=== PATIENT | male | born 1960 | race African-American/Black ===

== ENCOUNTER 2020-07-17 04:37 | Inpatient (IN) | payer OTHER ==
[~2020-07-17] VITALS: Ht 167.6 cm; Wt 82.6 kg
[2020-07-17 06:13] LABS: BASOPHILS % 0.7 % (0.0-2.0); EOSINOPHILS % 5.4 % (0.0-5.0); HEMATOCRIT. 43.1 % (42.0-52.0); HEMOGLOBIN. 14.7 g/dL (14.0-18.0); LYMPHOCYTES % 30.6 % (20.0-50.0); MEAN CORPUSCULAR HEMOGLOBIN 32.8 pg (28.0-32.0); MEAN CORPUSCULAR VOLUME 96.2 fL (80.0-94.0); MEAN PLATELET VOLUME 7.8 fl (7.4-10.4); MONOCYTES % 12.2 % (2.0-8.0); NEUTROPHILS % 51.1 % (40.0-76.0); PLATELET 181 x1000/uL (130-400); RED BLOOD CELL COUNT 4.48 mill/uL (4.7-6.1); RED CELL DISTRIBUTION WIDTH 12.4 % (11.6-14.6)
[2020-07-17 06:20] LABS: CHLORIDE 101 mEq/L (98-107)
[2020-07-17] MEDS ORDERED: DILTIAZEM HCL 5MG/ML 5ML VIAL IV ONE ×3 (06:45→11:00)
[2020-07-17] MEDS ORDERED: FUROSEMIDE 20MG/2ML VIAL IVP ONE (07:30)
[2020-07-17] MEDS ORDERED: ASPIRIN 81MG EC TABLET PO ONE (07:30)
[2020-07-17] MEDS ORDERED: CEFTRIAXONE 1 G PREMIX 50 ML IV ONE (07:45)
[2020-07-17] MEDS ORDERED: AZITHROMYCIN 500 MG in DEXT 5% WATER 250 ML IV SCH ×2 (07:45→10:30)
[2020-07-17] MEDS ORDERED: MAGNESIUM 1 G PREMIX 100 ML IV ONE (07:45)
[2020-07-17 09:13] LABS: *AMPHETAMINES SCREEN URINE NEGATIVE (NEGATIVE); *BARBITURATES SCREEN URINE NEGATIVE (NEGATIVE)
[2020-07-17 09:14] LABS: *BENZODIAZEPINES SCREEN URINE NEGATIVE (NEGATIVE); *COCAINE SCREEN URINE NEGATIVE (NEGATIVE); CANNABINOID URINE SCREEN NEGATIVE (NEGATIVE); METHADONE URINE SCREEN NEGATIVE (NEGATIVE); OPIATES URINE SCREEN NEGATIVE (NEGATIVE); PHENCYCLIDINE URINE SCREEN NEGATIVE (NEGATIVE)
[2020-07-17] MEDS ORDERED: MAGNESIUM/ALUMINUM HYDROXIDE/SIMETHICONE 30ML UDC PO PRN (10:00)
[2020-07-17] MEDS ORDERED: LORAZEPAM 0.5MG TABLET PO PRN (10:00)
[2020-07-17] MEDS ORDERED: CLONIDINE 0.1MG TABLET PO PRN (10:00)
[2020-07-17] MEDS ORDERED: ACETAMINOPHEN 325MG TABLET PO PRN ×2 (10:00)
[2020-07-17] MEDS ORDERED: DOCUSATE SODIUM 100MG CAPSULE PO PRN (10:00)
[2020-07-17] MEDS ORDERED: ONDANSETRON HCL 4MG/2ML INJ IV PRN (10:00)
[2020-07-17] MEDS ORDERED: TRAMADOL 50MG TABLET PO PRN (10:00)
[2020-07-17] MEDS ORDERED: ENOXAPARIN 100MG/ML SYR SUBCUT SCH (10:00)
[2020-07-17] MEDS ORDERED: NITROGLYCERIN 0.4MG TABLET SL SL PRN (10:00)
[2020-07-17] MEDS ORDERED: GUAIFENESIN 200MG/10ML SUGAR FREE UDC PO PRN (10:00)
[2020-07-17] MEDS: GUAIFENESIN/DM 600MG/30MG ER TAB 12HR PO SCH ×2 (10:00→21:29)
[2020-07-17] MEDS ORDERED: ZOLPIDEM TARTRATE 5MG TABLET PO PRN (10:00)
[2020-07-17] MEDS ORDERED: NA PHOS,M-B/NA PHOS,DI-BA ENEMA 118ML PR PRN (10:00)
[2020-07-17] MEDS ORDERED: IPRATROPIUM/ALBUTEROL 0.5-3(2.5)MG/3ML NEB ORI PRN (10:00)
[2020-07-17] MEDS ORDERED: DILTIAZEM HCL 60MG TABLET PO SCH (12:00)
[2020-07-17 15:52] VITALS: BP 154/87
[2020-07-17] MEDS ORDERED: POTA8CAP20 MT (16:01)
[2020-07-17] MEDS ORDERED: RIVA10TA MT (16:01)
[2020-07-17 16:04] VITALS: BP 141/87
[2020-07-17 18:00] VITALS: BP 119/56
[2020-07-17] MEDS ORDERED: MAGNESIUM 2 G PREMIX 50 ML IV NR (18:00)
[2020-07-17] MEDS: ENOXAPARIN 80MG/0.8ML SYR SUBCUT SCH (18:13)
[2020-07-17 20:00] VITALS: BP 117/62
[2020-07-17 20:16] LABS: CREATINE KINASE MB FRACTION 2.5 ng/mL (0.5-3.6)
[2020-07-17] MEDS: DILTIAZEM HCL 90MG TABLET PO SCH (21:29)
[2020-07-17] MEDS: ASCORBIC ACID 500 MG TABLET PO SCH (21:30)
[2020-07-17] MEDS: FAMOTIDINE 20MG TABLET PO SCH (21:30)
[2020-07-17 22:00] VITALS: BP 136/89
[2020-07-18] VITALS (15 sets, daily range): BP systolic 109–155; BP diastolic 73–90
[2020-07-18] MEDS: ENOXAPARIN 80MG/0.8ML SYR SUBCUT SCH (05:56)
[2020-07-18] MEDS: DILTIAZEM HCL 90MG TABLET PO SCH ×3 (05:56→21:47)
[2020-07-18] MEDS: CEFTRIAXONE 1,000 MG in DEXTROSE 5% WATER 50 ML IV SCH (07:56)
[2020-07-18] MEDS: AZITHROMYCIN 500 MG in DEXT 5% WATER 250 ML IV SCH (07:56)
[2020-07-18] MEDS ORDERED: CEFTRIAXONE 1,000 MG in DEXTROSE 5% WATER 50 ML IV SCH (08:00)
[2020-07-18] MEDS: ASCORBIC ACID 500 MG TABLET PO SCH ×2 (08:22→20:16)
[2020-07-18] MEDS: ZINC SULFATE 220 MG ( 50 ) CAPSULE PO SCH (08:22)
[2020-07-18] MEDS: FAMOTIDINE 20MG TABLET PO SCH ×2 (08:26→20:16)
[2020-07-18] MEDS: GUAIFENESIN/DM 600MG/30MG ER TAB 12HR PO SCH ×2 (08:33→21:47)
[2020-07-18 08:39] LABS: BASOPHILS % 0.9 % (0.0-2.0); EOSINOPHILS % 9.4 % (0.0-5.0); HEMATOCRIT. 46.3 % (42.0-52.0); HEMOGLOBIN. 15.6 g/dL (14.0-18.0); LYMPHOCYTES % 39.8 % (20.0-50.0); MEAN CORPUSCULAR HEMOGLOBIN 32.6 pg (28.0-32.0); MEAN CORPUSCULAR VOLUME 96.4 fL (80.0-94.0); MEAN PLATELET VOLUME 8.7 fl (7.4-10.4); MONOCYTES % 10.9 % (2.0-8.0); PLATELET 219 x1000/uL (130-400); RED CELL DISTRIBUTION WIDTH 12.3 % (11.6-14.6)
[2020-07-18 08:58] LABS: CHLORIDE 104 mEq/L (98-107)
[2020-07-18] MEDS ORDERED: CEFTRIAXONE 1 G PREMIX 50 ML IV SCH (09:00)
[2020-07-18] MEDS ORDERED: ASPIRIN 325MG EC TABLET PO SCH (09:00)
[2020-07-18] MEDS ORDERED: AZITHROMYCIN 500 MG in DEXT 5% WATER 250 ML IV SCH (09:00)
[2020-07-18 09:04] LABS: PHOSPHORUS 2.5 mg/dL (2.5-4.9)
[2020-07-18] MEDS ORDERED: MIDAZOLAM HCL 2 MG/2 ML VIAL ONE ×2 (10:27→13:46)
[2020-07-18] MEDS ORDERED: LIDOCAINE HCL 1% 20ML VIAL (Pyxis) INJ ONE (10:27)
[2020-07-18] MEDS ORDERED: FENTANYL CITRATE/PF 50MCG/ML 2ML VIAL ONE ×2 (10:27→13:46)
[2020-07-18] MEDS ORDERED: IODIXANOL 320MG/ML 100 ML BOTTLE IV ONE (10:28)
[2020-07-18] MEDS ORDERED: HEPARIN SODIUM 1,000 UNIT/1ML VIAL IV ONE (11:12)
[2020-07-18] MEDS ORDERED: VERAPAMIL HCL 2.5 MG/1 ML 2ML VIAL IV ONE (13:21)
[2020-07-18] MEDS ORDERED: RIVAROXABAN 20 MG TABLET PO SCH (17:56)
[2020-07-19] VITALS: BP 107/59
[2020-07-19 02:00] VITALS: BP 128/83
[2020-07-19 04:00] VITALS: BP 93/76
[2020-07-19 05:01] VITALS: BP 138/88
[2020-07-19 06:14] VITALS: BP 127/81
[2020-07-19 06:18] LABS: CHLORIDE 103 mEq/L (98-107)
[2020-07-19 06:19] LABS: BASOPHILS % 0.6 % (0.0-2.0); EOSINOPHILS % 10.1 % (0.0-5.0); HEMATOCRIT. 40.1 % (42.0-52.0); HEMOGLOBIN. 13.7 g/dL (14.0-18.0); LYMPHOCYTES % 37.5 % (20.0-50.0); MEAN CORPUSCULAR HEMOGLOBIN 32.8 pg (28.0-32.0); MEAN CORPUSCULAR VOLUME 95.9 fL (80.0-94.0); MEAN PLATELET VOLUME 8.8 fl (7.4-10.4); MONOCYTES % 10.9 % (2.0-8.0); NEUTROPHILS % 40.9 % (40.0-76.0); PLATELET 179 x1000/uL (130-400); RED BLOOD CELL COUNT 4.17 mill/uL (4.7-6.1); RED CELL DISTRIBUTION WIDTH 12.3 % (11.6-14.6)
[2020-07-19] MEDS: DILTIAZEM HCL 90MG TABLET PO SCH (06:21)
[2020-07-19] MEDS: CEFTRIAXONE 1,000 MG in DEXTROSE 5% WATER 50 ML IV SCH (08:08)
[2020-07-19] MEDS: AZITHROMYCIN 500 MG in DEXT 5% WATER 250 ML IV SCH (08:08)
[2020-07-19] MEDS: ZINC SULFATE 220 MG ( 50 ) CAPSULE PO SCH (08:09)
[2020-07-19] MEDS: ASCORBIC ACID 500 MG TABLET PO SCH (08:09)
[2020-07-19] MEDS: FAMOTIDINE 20MG TABLET PO SCH (08:09)
[2020-07-19] MEDS: GUAIFENESIN/DM 600MG/30MG ER TAB 12HR PO SCH (10:28)
[2020-07-19 11:32] VITALS: BP 143/79
[2020-07-19] MEDS ORDERED: losartan (11:32)
[2020-07-19] MEDS ORDERED: DILTIAZEM HCL 60MG TABLET PO SCH (21:00)
[2020-07-20] MEDS ORDERED: AZITHROMYCIN 500 MG TABLET PO SCH (09:00)
[2020-07-20] MEDS ORDERED: ASPIRIN 81MG TABLET PO SCH (09:00)
== END 2020-07-19 13:46 | disposition home or self-care (01) | DRG 281 ==
LOC: ER 04:37 → ENRESERV 13:27 → 3WST 16:05
PROVIDERS: ADMIT Internal Medicine; ATTEND Internal Medicine
PROC: 4A023N7 Measurement of Cardiac Sampling and Pressure, Left Heart, Percutaneous Approach (ICD-10-PCS; principal; 2020-07-18)
PROC: 5A2204Z Restoration of Cardiac Rhythm, Single (ICD-10-PCS; 2020-07-18)
PROC: B2111ZZ Fluoroscopy of Multiple Coronary Arteries using Low Osmolar Contrast (ICD-10-PCS; 2020-07-18)
DX: I21.4 Non-ST elevation (NSTEMI) myocardial infarction (principal); I50.40 Unspecified combined systolic (congestive) and diastolic (congestive) heart failure; E87.2 Acidosis; E87.1 Hypo-osmolality and hyponatremia; I48.19 Other persistent atrial fibrillation; I48.92 Unspecified atrial flutter; I25.10 Atherosclerotic heart disease of native coronary artery without angina pectoris; I11.0 Hypertensive heart disease with heart failure; E83.42 Hypomagnesemia; J45.909 Unspecified asthma, uncomplicated; R54 Age-related physical debility; F16.10 Hallucinogen abuse, uncomplicated; Z20.828 Contact with and (suspected) exposure to other viral communicable diseases; M94.0 Chondrocostal junction syndrome [Tietze]; Z91.11 Patient's noncompliance with dietary regimen; Z91.14 Patient's other noncompliance with medication regimen; Z86.73 Personal history of transient ischemic attack (TIA), and cerebral infarction without residual deficits; I25.2 Old myocardial infarction; Z79.899 Other long term (current) drug therapy
CPT/HCPCS: 36415; 71045; 80048; 80053; 80061; 80305; 82550; 82553; 83036; 83605; 83735; 83880; 84100; 84145; 84484; 85025; 85379; 87426; 92960; 93005; 93306; 93454; 93970; 99291; C1769; C1887; C1893; J0456; J0696; J1644; J1650; J1940; J2250; J3010; J3475; J3490; J7060; Q9967

== ENCOUNTER 2024-02-21 16:04 | Inpatient (IN) | payer OTHER ==
[~2024-02-21] VITALS: Ht 185.4 cm; Wt 85.7 kg
[~2024-02-21 16:04] MED LIST: POTA8CAP20 MT; RIVA10TA MT; losartan
[2024-02-21] MEDS: SODIUM CHLORIDE 0.9% 1,000 ML IV ONE (17:00)
[2024-02-21 17:25] LABS: EOSINOPHILS % 3.6 % (0.0-5.0); HEMATOCRIT. 39.3 % (42.0-52.0); HEMOGLOBIN. 13.5 g/dL (14.0-18.0); MEAN CORPUSCULAR HEMOGLOBIN 32.1 pg (28.0-32.0); MEAN CORPUSCULAR HGB CONC 34.4 g/dL (31.0-37.0); MEAN CORPUSCULAR VOLUME 93.2 fL (80.0-94.0); MEAN PLATELET VOLUME 9.3 fl (7.4-10.4); MONOCYTES % 10.7 % (2.0-8.0); NEUTROPHILS % 42.7 % (40.0-76.0); PLATELET 265 x1000/uL (130-400); RED BLOOD CELL COUNT 4.22 mill/uL (4.7-6.1); RED CELL DISTRIBUTION WIDTH 14.4 % (11.6-14.6); WHITE BLOOD COUNT 5.3 x1000/uL (4.5-11.0)
[2024-02-21 17:46] LABS: ALANINE AMINOTRANSFERASE 24 IU/L (10-49); ALBUMIN 4.1 g/dL (3.2-4.8); ASPARTATE AMINOTRANSFERASE 47 IU/L (<34); BILIRUBIN TOTAL 0.7 mg/dL (0.1-1.0); CALCIUM 9.3 mg/dL (8.7-10.4); CARBON DIOXIDE 26 mEq/L (21-32); CHLORIDE 95 mEq/L (98-107); CREATININE 0.8 mg/dL (0.6-1.3); GLUCOSE 114 mg/dL (70-105); POTASSIUM 4.7 mEq/L (3.5-5.1); PROTEIN TOTAL 7.7 g/dL (6.0-8.3); SODIUM 129 mEq/L (136-145); TROPONIN I HIGH SENSITIVITY 7 ng/L (3.0-53); UREA NITROGEN BLOOD 8 mg/dL (9-23)
[2024-02-21 19:39] LABS: INR 1.5; PROTHROMBIN TIME 15.9 sec (9.6-11.0)
[2024-02-21 21:38] LABS: CLARITY URINE CLEAR (CLEAR); COLOR URINE YELLOW (YELLOW); GLUCOSE URINE NEGATIVE (NEGATIVE); KETONES URINE NEGATIVE (NEGATIVE); LEUKOCYTE ESTERASE URINE NEGATIVE (NEGATIVE); NITRITE URINE NEGATIVE (NEGATIVE); OCCULT BLOOD URINE NEGATIVE (NEGATIVE); PROTEIN URINE NEGATIVE (NEGATIVE); SPECIFIC GRAVITY URINE 1.011 (1.005-1.030)
[2024-02-21 21:52] LABS: *AMPHETAMINES SCREEN URINE NEGATIVE (NEGATIVE); *BARBITURATES SCREEN URINE NEGATIVE (NEGATIVE); *BENZODIAZEPINES SCREEN URINE NEGATIVE (NEGATIVE); *COCAINE SCREEN URINE NEGATIVE (NEGATIVE); CANNABINOID URINE SCREEN NEGATIVE (NEGATIVE); ECSTASY MDMA SCREEN URINE NEGATIVE (NEGATIVE); METHADONE URINE SCREEN Neg (NEGATIVE); OPIATES URINE SCREEN NEGATIVE (NEGATIVE); PHENCYCLIDINE URINE SCREEN NEGATIVE (NEGATIVE)
[2024-02-21 22:00] LABS: BACTERIA URINE TRACE; RBC URINE NONE SEEN /hpf (0-2); SQUAMOUS EPITHELIAL CELL URINE RARE /lpf (RARE/1+); WBC URINE 0-2 /hpf (0-2)
[2024-02-21 23:59] LABS: TROPONIN I HIGH SENSITIVITY 6 ng/L (3.0-53)
[2024-02-22] MEDS ORDERED: MAGNESIUM/ALUMINUM HYDROXIDE/SIMETHICONE 30ML UDC PO PRN (04:00)
[2024-02-22] MEDS ORDERED: CLONIDINE 0.1MG TABLET PO PRN (04:00)
[2024-02-22] MEDS ORDERED: IPRATROPIUM/ALBUTEROL 0.5-3(2.5)MG/3ML NEB HHN PRN (04:00)
[2024-02-22] MEDS ORDERED: ACETAMINOPHEN 325MG TABLET PO PRN ×2 (04:00)
[2024-02-22] MEDS ORDERED: ONDANSETRON HCL 4MG/2ML INJ IV PRN (04:00)
[2024-02-22 08:00] VITALS: BP 118/79; PULSE 61; RESP 18; TEMP 98.6
[2024-02-22] MEDS: FUROSEMIDE 40MG TABLET PO SCH (09:00)
[2024-02-22 09:58] LABS: HEMATOCRIT. 38.3 % (42.0-52.0); HEMOGLOBIN. 12.7 g/dL (14.0-18.0); MEAN CORPUSCULAR HEMOGLOBIN 30.9 pg (28.0-32.0); MEAN CORPUSCULAR HGB CONC 33.3 g/dL (31.0-37.0); MEAN CORPUSCULAR VOLUME 92.8 fL (80.0-94.0); MEAN PLATELET VOLUME 8.6 fl (7.4-10.4); MONOCYTES % 8.4 % (2.0-8.0); NEUTROPHILS % 42.6 % (40.0-76.0); PLATELET 172 x1000/uL (130-400); RED BLOOD CELL COUNT 4.12 mill/uL (4.7-6.1); RED CELL DISTRIBUTION WIDTH 14.4 % (11.6-14.6); WHITE BLOOD COUNT 4.4 x1000/uL (4.5-11.0)
[2024-02-22 10:16] LABS: CALCIUM 9.1 mg/dL (8.7-10.4); CARBON DIOXIDE 27 mEq/L (21-32); CHLORIDE 100 mEq/L (98-107); CREATININE 0.6 mg/dL (0.6-1.3); GLUCOSE 196 mg/dL (70-105); PHOSPHORUS 3.4 mg/dL (2.5-4.9); SODIUM 132 mEq/L (136-145); UREA NITROGEN BLOOD 7 mg/dL (9-23)
[2024-02-22] MEDS: METOPROLOL TARTRATE 50MG TABLET PO SCH (10:17)
[2024-02-22] MEDS: THIAMINE HCL 100MG TABLET PO SCH (10:17)
[2024-02-22] MEDS: IOHEXOL-350 100 ML BOTTLE ONE (10:18)
[2024-02-22] MEDS: MAGNESIUM 2 G PREMIX 50 ML IV NR (13:30)
[2024-02-22 14:00] VITALS: BP 118/79; PULSE 61; RESP 18; TEMP 98.6
[2024-02-22 15:52] VITALS: BP 118/79; PULSE 61; RESP 18; TEMP 98.6
[2024-02-22 16:00] VITALS: BP 118/79; PULSE 61; RESP 18; TEMP 98.6
[2024-02-22] MEDS: RIVAROXABAN 20 MG TABLET PO SCH (17:12)
[2024-02-22 20:00] VITALS: BP 106/71; PULSE 64; RESP 19; TEMP 98.2
[2024-02-22] MEDS: FAMOTIDINE 20MG TABLET PO SCH (21:11)
[2024-02-22] MEDS: ATORVASTATIN CALCIUM 40MG TABLET PO SCH (21:11)
[2024-02-23] VITALS: BP 118/71; PULSE 60; RESP 18; TEMP 97.8
[2024-02-23 04:00] VITALS: BP 128/77; PULSE 67; RESP 18; TEMP 98.1
[2024-02-23 06:10] LABS: BASOPHILS % 0.9 % (0.0-2.0); EOSINOPHILS % 4.6 % (0.0-5.0); HEMATOCRIT 38.9 % (42.0-52.0); HEMATOCRIT. 38.9 % (42.0-52.0); HEMOGLOBIN 13.1 g/dL (14.0-18.0); HEMOGLOBIN. 13.1 g/dL (14.0-18.0); LYMPHOCYTES % 50.5 % (20.0-50.0); MEAN CORPUSCULAR HEMOGLOBIN 31.8 pg (28.0-32.0); MEAN CORPUSCULAR HGB CONC 33.8 g/dL (31.0-37.0); MEAN CORPUSCULAR VOLUME 94.1 fL (80.0-94.0); MEAN PLATELET VOLUME 8.3 fl (7.4-10.4); MONOCYTES % 8.9 % (2.0-8.0); NEUTROPHILS % 35.1 % (40.0-76.0); PLATELET 202 x1000/uL (130-400); RED BLOOD CELL COUNT 4.14 mill/uL (4.7-6.1); RED CELL DISTRIBUTION WIDTH 14.4 % (11.6-14.6); WHITE BLOOD COUNT 4.8 x1000/uL (4.5-11.0)
[2024-02-23 06:52] LABS: ALANINE AMINOTRANSFERASE 23 IU/L (10-49); ASPARTATE AMINOTRANSFERASE 30 IU/L (<34); CALCIUM 9.8 mg/dL (8.7-10.4); CARBON DIOXIDE 24 mEq/L (21-32); CHLORIDE 102 mEq/L (98-107); CHOLESTEROL 143 mg/dL (<200); CREATININE 0.6 mg/dL (0.6-1.3); GLUCOSE 112 mg/dL (70-105); HDL CHOLESTEROL 57 mg/dL (>55); LDL CHOLESTEROL 76 mg/dL (5-100); POTASSIUM 3.9 mEq/L (3.5-5.1); PROTEIN TOTAL 7.7 g/dL (6.0-8.3); SODIUM 134 mEq/L (136-145); T4 FREE 0.86 ng/dL (0.89-1.76); THYROID STIMULATING HORMONE 4.95 uIU/mL (0.55-4.78); TRIGLYCERIDE 54 mg/dL (0-150); UREA NITROGEN BLOOD 10 mg/dL (9-23)
[2024-02-23] MEDS: LEVOTHYROXINE SODIUM 50MCG TABLET PO SCH (07:45)
[2024-02-23 08:00] VITALS: BP 124/63; PULSE 56; RESP 19; TEMP 98.6
[2024-02-23] MEDS: AMLODIPINE 5MG TABLET PO SCH (09:30)
[2024-02-23 12:20] LABS: PHOSPHORUS 4.3 mg/dL (2.5-4.9)
[2024-02-23 12:21] LABS: ETHANOL BLOOD < 10 mg/dL (<10)
[2024-02-23 13:31] LABS: INR 1.2; PARTIAL THROMBOPLASTIN TIME 31.2 sec (23.4-31.0); PROTHROMBIN TIME 13.7 sec (9.6-11.0)
[2024-02-23 20:00] VITALS: BP 118/74; PULSE 64; RESP 19; TEMP 97.3
[2024-02-23 20:11] VITALS: BP 118/74; PULSE 64; TEMP 97.3; O2SAT 100
[2024-02-24] MEDS ORDERED: LEVOTHYROXINE SODIUM 25MCG TABLET PO SCH (06:40)
== END 2024-02-23 23:51 | disposition short-term general hospital (02) | DRG 310 ==
LOC: ER 16:04 → 7EST 22:14
PROVIDERS: ADMIT Preventive Medicine Clinical Informatics; ATTEND Preventive Medicine Clinical Informatics
DX: I48.91 Unspecified atrial fibrillation (principal); E78.5 Hyperlipidemia, unspecified; E11.9 Type 2 diabetes mellitus without complications; R55 Syncope and collapse; I11.0 Hypertensive heart disease with heart failure; I50.9 Heart failure, unspecified; Z79.01 Long term (current) use of anticoagulants; Z86.73 Personal history of transient ischemic attack (TIA), and cerebral infarction without residual deficits
CPT/HCPCS: 36415; 70496; 70498; 71045; 80048; 80053; 80061; 80305; 80320; 81003; 82962; 83036; 83735; 83880; 84100; 84439; 84443; 84484; 85025; 85027; 93005; 93306; 97162; 97166; 97530; 99285; J3475; J7030; Q9967; G0480

== ENCOUNTER 2024-07-19 11:53 | Inpatient (IN) | payer OTHER ==
[~2024-07-19] VITALS: Ht 167.6 cm; Wt 79.8 kg
[2024-07-19 14:09] LABS: POTASSIUM 3.7 mEq/L (3.5-5.1)
[2024-07-19 14:10] LABS: CALCIUM 10.2 mg/dL (8.7-10.4)
[2024-07-19 14:16] LABS: CREATININE 4.1 mg/dL (0.6-1.3); HEMOGLOBIN. 15.6 g/dL (14.0-18.0); MEAN CORPUSCULAR HEMOGLOBIN 33.7 pg (28.0-32.0); MEAN CORPUSCULAR HGB CONC 33.2 g/dL (31.0-37.0); MEAN CORPUSCULAR VOLUME 101.4 fL (80.0-94.0); MEAN PLATELET VOLUME 8.6 fl (7.4-10.4); PLATELET 223 x1000/uL (130-400); RED BLOOD CELL COUNT 4.63 mill/uL (4.7-6.1); WHITE BLOOD COUNT 17.6 x1000/uL (4.5-11.0)
[2024-07-19 14:17] LABS: DIFFERENTIAL COMMENT 1
[2024-07-19 14:18] LABS: INR 1.2; PROTHROMBIN TIME 13.3 sec (9.6-11.0)
[2024-07-19 14:52] LABS: PLATELET ESTIMATE NORMAL
[2024-07-19 18:23] LABS: IRON 21 ug/dL (65-175)
[2024-07-19 18:24] LABS: ETHANOL BLOOD < 10 mg/dL (<10)
[2024-07-19 18:26] LABS: TOTAL IRON BINDING CAPACITY 651 ug/dl (250-425)
[2024-07-19 18:29] LABS: FOLIC ACID (FOLATE) SERUM > 20.00 ng/mL (>5.38)
[2024-07-19 18:30] LABS: T4 FREE 1.36 ng/dL (0.89-1.76); THYROID STIMULATING HORMONE 4.46 uIU/mL (0.55-4.78); VITAMIN B12 SERUM 565 pg/mL (211-911)
[2024-07-19 19:07] LABS: LACTIC ACID 2.5 mmol/L (0.4-2.0)
[2024-07-19] MEDS ORDERED: DOCUSATE SODIUM 100MG CAPSULE PO PRN (20:30)
[2024-07-19] MEDS ORDERED: IPRATROPIUM/ALBUTEROL 0.5-3(2.5)MG/3ML NEB NEB PRN (20:30)
[2024-07-19] MEDS ORDERED: ACETAMINOPHEN 325MG TABLET PO PRN (20:30)
[2024-07-19] MEDS ORDERED: MAGNESIUM/ALUMINUM HYDROXIDE/SIMETHICONE 30ML UDC PO PRN (20:30)
[2024-07-19] MEDS ORDERED: CLONIDINE 0.1MG TABLET PO PRN (20:30)
[2024-07-19] MEDS ORDERED: GUAIFENESIN 200MG/10ML SUGAR FREE UDC PO PRN (20:30)
[2024-07-19] MEDS ORDERED: NITROGLYCERIN 0.4MG TABLET SL SL PRN (20:30)
[2024-07-19] MEDS ORDERED: ONDANSETRON HCL 4MG/2ML INJ IV PRN (20:30)
[2024-07-19] MEDS ORDERED: ZOLPIDEM TARTRATE 5MG TABLET PO PRN (21:00)
[2024-07-19] MEDS: LACTATED RINGERS 1,600 ML IV NR (21:07)
[2024-07-19] MEDS: DEXT 5%/LACTATED RINGERS 1,000 ML IV SCH (21:38)
[2024-07-19] MEDS ORDERED: PANTOPRAZOLE 80 MG in SODIUM CHLORIDE 0.9% 100 ML IV SCH (22:00)
[2024-07-19 22:45] VITALS: BP 122/80; PULSE 100; RESP 22; TEMP 37.1408
[2024-07-19] MEDS: PANTOPRAZOLE 80 MG in SODIUM CHLORIDE 0.9% 100 ML IV SCH (23:50)
[2024-07-20] VITALS: BP 125/81; PULSE 100; RESP 22; TEMP 37.11408; O2SAT 99
[2024-07-20 04:00] VITALS: BP 137/72; PULSE 97; RESP 19; TEMP 37.00296; O2SAT 98
[2024-07-20 06:46] LABS: HEMATOCRIT. 40.5 % (42.0-52.0); HEMOGLOBIN. 13.8 g/dL (14.0-18.0); MEAN CORPUSCULAR HEMOGLOBIN 33.7 pg (28.0-32.0); MEAN CORPUSCULAR VOLUME 99.3 fL (80.0-94.0); MEAN PLATELET VOLUME 8.8 fl (7.4-10.4); PLATELET 188 x1000/uL (130-400); RED BLOOD CELL COUNT 4.08 mill/uL (4.7-6.1); RED CELL DISTRIBUTION WIDTH 12.9 % (11.6-14.6); WHITE BLOOD COUNT 12.9 x1000/uL (4.5-11.0)
[2024-07-20 06:49] LABS: DIFFERENTIAL COMMENT 1
[2024-07-20 07:18] LABS: CHLORIDE 100 mEq/L (98-107); SODIUM 131 mEq/L (136-145)
[2024-07-20 07:21] LABS: CARBON DIOXIDE 19 mEq/L (21-32)
[2024-07-20 07:22] LABS: CALCIUM 9.3 mg/dL (8.7-10.4)
[2024-07-20 07:26] LABS: CREATININE 3.9 mg/dL (0.6-1.3); GLUCOSE 141 mg/dL (70-105); UREA NITROGEN BLOOD 42 mg/dL (9-23)
[2024-07-20 07:27] LABS: ALANINE AMINOTRANSFERASE 28 IU/L (10-49)
[2024-07-20 07:28] LABS: ALBUMIN 3.6 g/dL (3.2-4.8); ASPARTATE AMINOTRANSFERASE 58 IU/L (<34); PHOSPHORUS 2.8 mg/dL (2.5-4.9)
[2024-07-20 07:29] LABS: BILIRUBIN TOTAL 0.7 mg/dL (0.1-1.0); PROTEIN TOTAL 6.7 g/dL (6.0-8.3)
[2024-07-20 08:00] VITALS: BP 118/61; PULSE 93; RESP 20; TEMP 38.78088; O2SAT 100
[2024-07-20] MEDS: ACETAMINOPHEN 325MG TABLET PO PRN (09:43)
[2024-07-20] MEDS: KCL 20MEQ/100ML PREMIX 100 ML IV SCH (10:58)
[2024-07-20 12:00] VITALS: BP 104/62; PULSE 96; RESP 18; TEMP 37.28076; O2SAT 98
[2024-07-20 14:31] VITALS: BP 104/62; PULSE 96; TEMP 99.1; O2SAT 98
[2024-07-20 15:16] LABS: PLATELET ESTIMATE NORMAL
[2024-07-20 16:00] VITALS: BP 115/67; PULSE 92; RESP 18; TEMP 37.28076; O2SAT 98
== END 2024-07-20 16:58 | disposition short-term general hospital (02) | DRG 811 ==
LOC: ER 12:12 → 8WST 14:03 → EDBEDREQ 14:05 → EDBEDREQTM 14:05
PROVIDERS: ADMIT Internal Medicine; ATTEND Internal Medicine
DX: D62 Acute posthemorrhagic anemia (principal); N17.0 Acute kidney failure with tubular necrosis; E87.1 Hypo-osmolality and hyponatremia; E87.20 Acidosis, unspecified; I69.351 Hemiplegia and hemiparesis following cerebral infarction affecting right dominant side; K92.2 Gastrointestinal hemorrhage, unspecified; E78.00 Pure hypercholesterolemia, unspecified; I10 Essential (primary) hypertension; Z79.899 Other long term (current) drug therapy
CPT/HCPCS: 36415; 71045; 76770; 80048; 80053; 80320; 82607; 82746; 83540; 83550; 83605; 83735; 84100; 84439; 84443; 85025; 86850; 86900; 93306; 93970; 99285; J2470; J3480; J7050; G0480

== ENCOUNTER 2025-05-18 13:22 | Emergency (ER) | payer OTHER ==
[~2025-05-18] VITALS: Ht 170.2 cm; Wt 80.0 kg
[2025-05-18] MEDS: ACETAMINOPHEN 325MG TABLET PO STA (13:51)
[2025-05-18] MEDS: SODIUM CHLORIDE 0.9% 1,000 ML IV ONE (13:51)
[2025-05-18] MEDS: PIPERACILLIN/TAZO 3.375G/50ML 50 ML IV ONE (13:51)
[2025-05-18] MEDS: METHYLPREDNISOLONE SOD SUCC 125MG/2ML (ACT-O-VIAL) IV ONE (13:54)
[2025-05-18] MEDS: VANCOMYCIN 1G PREMIX 200 ML IV ONE (13:54)
[2025-05-18 14:01] LABS: HEMATOCRIT. 41.3 % (42.0-52.0); HEMOGLOBIN. 13.6 g/dL (14.0-18.0); MEAN PLATELET VOLUME 8.7 fl (7.4-10.4); PLATELET 152 x1000/uL (130-400); RED BLOOD CELL COUNT 4.60 mill/uL (4.7-6.1); RED CELL DISTRIBUTION WIDTH 13.6 % (11.6-14.6)
[2025-05-18 14:18] LABS: CREATININE 1.1 mg/dL (0.6-1.3); UREA NITROGEN BLOOD 9 mg/dL (9-23)
[2025-05-18 14:19] LABS: TROPONIN I HIGH SENSITIVITY 7 ng/L (3.0-53)
[2025-05-18 14:22] LABS: EOSINOPHILS % MANUAL 4.0 % (0.0-5.0); LYMPHOCYTES % MANUAL 30.0 % (20.0-50.0); MONOCYTES % MANUAL 11.0 % (2.0-8.0); NEUTROPHILS % MANUAL 55.0 % (45.0-75.0); PLATELET ESTIMATE NORMAL
[2025-05-18 14:32] VITALS: PULSE 107; RESP 22; O2SAT 96
[2025-05-18] MEDS: IPRATROPIUM/ALBUTEROL 0.5-3(2.5)MG/3ML NEB HHN ONE (14:32)
[2025-05-18 14:49] LABS: INR 1.1
[2025-05-18] MEDS: ALBUTEROL (0.083%) 2.5MG/3ML NEB HHN ONE (15:04)
[2025-05-18] MEDS: METOPROLOL TARTRATE 5MG/5ML VIAL IV SCH (15:45)
[2025-05-18] MEDS ORDERED: P50 MT (16:28)
[2025-05-18] MEDS ORDERED: ALBU90AE INH (16:28)
[2025-05-18] MEDS ORDERED: AZIT250T12 MT (16:28)
[2025-05-18] MEDS: METOPROLOL TARTRATE 25MG TABLET PO ONE (17:04)
[2025-05-18 18:13] VITALS: BP 121/78; PULSE 84; RESP 23; TEMP 38.4; O2SAT 96
== END 2025-05-18 18:21 | disposition home or self-care (01) ==
LOC: ER 13:30 → EDBEDREQ 13:35 → ER 18:21
DX: I48.91 Unspecified atrial fibrillation (principal); J20.9 Acute bronchitis, unspecified; E78.00 Pure hypercholesterolemia, unspecified; I10 Essential (primary) hypertension; I25.2 Old myocardial infarction; Z79.899 Other long term (current) drug therapy; Z20.822 Contact with and (suspected) exposure to COVID-19
CPT/HCPCS: 80048; 83880; 83605; 85025; 85610; 87040; 84484; 84145; 71045; 94640; 93005; 96368; 96365; 96375; 99285; 87426; J2919; J3490; J2543; J3370; Z7610 ×5; J7030; 94070; A4606

== ENCOUNTER 2025-05-20 01:52 | Inpatient (IN) | payer OTHER ==
[~2025-05-20] VITALS: Ht 170.2 cm; Wt 87.5 kg
[2025-05-20] VITALS (7 sets, daily range): BP systolic 140–163; BP diastolic 77–86; PULSE 58–89; RESP 18–19; TEMP 36.6–36.8; O2SAT 98–99
[~2025-05-20 01:52] MED LIST changes: +ALBU90AE INH; +AZIT250T12 MT; +P50 MT
[2025-05-20] MEDS ORDERED: IPRATROPIUM BROMIDE (0.02%) 0.5MG/2.5ML NEB HHN STA (01:58)
[2025-05-20] MEDS: METHYLPREDNISOLONE SOD SUCC 125MG/2ML (ACT-O-VIAL) IV STA (01:58)
[2025-05-20 02:40] LABS: BASOPHILS % 0.2 % (0.0-2.0); EOSINOPHILS % 0.0 % (0.0-5.0); HEMATOCRIT. 40.8 % (42.0-52.0); HEMOGLOBIN. 13.7 g/dL (14.0-18.0); LYMPHOCYTES % 20.2 % (20.0-50.0); MEAN PLATELET VOLUME 8.1 fl (7.4-10.4); MONOCYTES % 8.7 % (2.0-8.0); NEUTROPHILS % 70.9 % (40.0-76.0); PLATELET 174 x1000/uL (130-400); RED BLOOD CELL COUNT 4.57 mill/uL (4.7-6.1); RED CELL DISTRIBUTION WIDTH 13.7 % (11.6-14.6)
[2025-05-20 02:48] LABS: INR 1.0
[2025-05-20 02:50] LABS: CREATININE 1.1 mg/dL (0.6-1.3)
[2025-05-20 02:51] LABS: ETHANOL BLOOD < 10 mg/dL (<10); UREA NITROGEN BLOOD 13 mg/dL (9-23)
[2025-05-20 02:52] LABS: TROPONIN I HIGH SENSITIVITY 12 ng/L (3.0-53)
[2025-05-20 03:29] LABS: BG DEOXYHEMOGLOBIN 5.6 % (0.0-5.0)
[2025-05-20] MEDS: HYDRALAZINE 20MG/ML VIAL IV ONE (04:30)
[2025-05-20] MEDS: ALBUTEROL (0.083%) 2.5MG/3ML NEB HHN STA (05:14)
[2025-05-20 05:18] LABS: *AMPHETAMINES SCREEN URINE NEGATIVE (NEGATIVE); *BARBITURATES SCREEN URINE NEGATIVE (NEGATIVE); *BENZODIAZEPINES SCREEN URINE NEGATIVE (NEGATIVE); *COCAINE SCREEN URINE NEGATIVE (NEGATIVE); METHADONE URINE SCREEN NEGATIVE (NEGATIVE)
[2025-05-20 05:19] LABS: CANNABINOID URINE SCREEN NEGATIVE (NEGATIVE); ECSTASY MDMA SCREEN URINE NEGATIVE (NEGATIVE); OPIATES URINE SCREEN NEGATIVE (NEGATIVE); PHENCYCLIDINE URINE SCREEN NEGATIVE (NEGATIVE)
[2025-05-20] MEDS ORDERED: NALOXONE HCL 0.4MG/ML VIAL IV PRN (09:15)
[2025-05-20] MEDS ORDERED: CLONIDINE 0.1MG TABLET PO PRN (09:15)
[2025-05-20] MEDS ORDERED: ACETAMINOPHEN 325MG TABLET PO PRN (09:15)
[2025-05-20] MEDS ORDERED: ONDANSETRON HCL 4MG/2ML INJ IV PRN (09:15)
[2025-05-20] MEDS: METHYLPREDNISOLONE SOD SUCC 40MG/ML (ACT-O-VIAL) IV SCH (13:12)
[2025-05-20] MEDS: FUROSEMIDE 40MG/4ML VIAL IVP SCH (15:00)
[2025-05-20] MEDS: ENOXAPARIN 40MG/0.4ML SYR SUBCUT SCH (15:00)
[2025-05-20] MEDS: IPRATROPIUM/ALBUTEROL 0.5-3(2.5)MG/3ML NEB NEB SCH (17:58)
[2025-05-20] MEDS: HYDROCODONE/ACETAMINOPHEN 5/325MG TABLET PO PRN (20:33)
[2025-05-20 22:23] LABS: TROPONIN I HIGH SENSITIVITY 7 ng/L (3.0-53)
[2025-05-21] VITALS (12 sets, daily range): BP systolic 107–155; BP diastolic 59–92; PULSE 70–98; RESP 17–20; TEMP 36.4–36.9; O2SAT 96–100
[2025-05-21 06:53] LABS: BASOPHILS % 0.0 % (0.0-2.0); EOSINOPHILS % 0.0 % (0.0-5.0); HEMATOCRIT. 38.9 % (42.0-52.0); HEMOGLOBIN. 12.9 g/dL (14.0-18.0); LYMPHOCYTES % 11.8 % (20.0-50.0); MEAN PLATELET VOLUME 8.5 fl (7.4-10.4); MONOCYTES % 4.3 % (2.0-8.0); NEUTROPHILS % 83.9 % (40.0-76.0); PLATELET 172 x1000/uL (130-400); RED BLOOD CELL COUNT 4.35 mill/uL (4.7-6.1); RED CELL DISTRIBUTION WIDTH 13.7 % (11.6-14.6)
[2025-05-21 07:14] LABS: TROPONIN I HIGH SENSITIVITY 8 ng/L (3.0-53)
[2025-05-21 07:18] LABS: CREATININE 1.1 mg/dL (0.6-1.3); UREA NITROGEN BLOOD 20 mg/dL (9-23)
[2025-05-21] MEDS: PANTOPRAZOLE SODIUM 40 MG/VIAL IV SCH (08:45)
[2025-05-21] MEDS: DILTIAZEM HCL 5MG/ML 5ML VIAL IV SCH (11:24)
[2025-05-21] MEDS: DIGOXIN 500MCG/2ML AMP IV SCH (13:36)
[2025-05-21] MEDS: ENOXAPARIN 60MG/0.6ML SYR SUBCUT SCH (13:45)
[2025-05-21] MEDS: DIGOXIN 125MCG TABLET PO SCH (17:10)
[2025-05-21] MEDS: ENOXAPARIN 100MG/ML SYR SUBCUT SCH (21:39)
[2025-05-22] VITALS: BP_SYST 138; BP_SYST 157; BP_DIAS 87; BP_DIAS 92; PULSE 70; PULSE 74; RESP 17; RESP 18; TEMP 36.4; TEMP 36.8; O2SAT 100; O2SAT 96
[2025-05-22 03:13] VITALS: PULSE 79; RESP 18
[2025-05-22 04:00] VITALS: BP 142/64; PULSE 80; RESP 20; TEMP 36.8; O2SAT 99
[2025-05-22 09:19] LABS: HEMATOCRIT. 38.6 % (42.0-52.0); HEMOGLOBIN. 12.9 g/dL (14.0-18.0); MEAN PLATELET VOLUME 8.5 fl (7.4-10.4); PLATELET 184 x1000/uL (130-400); RED BLOOD CELL COUNT 4.37 mill/uL (4.7-6.1); RED CELL DISTRIBUTION WIDTH 13.6 % (11.6-14.6)
[2025-05-22 09:37] LABS: CREATININE 1.1 mg/dL (0.6-1.3); UREA NITROGEN BLOOD 21 mg/dL (9-23)
[2025-05-22 10:30] VITALS: PULSE 80; RESP 20; O2SAT 99
[2025-05-22 13:00] VITALS: PULSE 88; RESP 22; O2SAT 100
[2025-05-22 18:08] LABS: LYMPHOCYTES % MANUAL 12.0 % (20.0-50.0); MONOCYTES % MANUAL 5.0 % (2.0-8.0); NEUTROPHILS % MANUAL 83.0 % (45.0-75.0); PLATELET ESTIMATE NORMAL
== END 2025-05-22 16:52 | disposition short-term general hospital (02) | DRG 308 ==
LOC: ER 01:52 → EDBEDREQ 04:51 → EDBEDREQTM 04:51 → ENRESERV 05:15 → 8WST 06:26
PROVIDERS: ADMIT Internal Medicine; ATTEND Internal Medicine
DX: I48.91 Unspecified atrial fibrillation (principal); I50.33 Acute on chronic diastolic (congestive) heart failure; J96.01 Acute respiratory failure with hypoxia; I11.0 Hypertensive heart disease with heart failure; J44.9 Chronic obstructive pulmonary disease, unspecified; E78.00 Pure hypercholesterolemia, unspecified; Z86.73 Personal history of transient ischemic attack (TIA), and cerebral infarction without residual deficits
CPT/HCPCS: 36415; 71045; 80048; 80305; 80320; 82375; 82803; 83880; 84484; 85025; 93005; 93970; 94070; 94640; 99285; J0360; J1160; J1650; J1940; J2470; J2919; J3490; G0480

== ENCOUNTER 2025-08-10 | Emergency (ER) | payer OTHER ==
[~2025-08-10] VITALS: Ht 175.3 cm; Wt 88.6 kg
[~2025-08-10] MED LIST changes: -AZIT250T12 MT; -P50 MT
[2025-08-10 00:12] VITALS: O2SAT 99
[2025-08-10 01:55] LABS: HEMATOCRIT. 39.1 % (42.0-52.0); HEMOGLOBIN. 13.2 g/dL (14.0-18.0); MEAN PLATELET VOLUME 7.8 fl (7.4-10.4); PLATELET 245 x1000/uL (130-400); RED BLOOD CELL COUNT 4.49 mill/uL (4.7-6.1); RED CELL DISTRIBUTION WIDTH 13.0 % (11.6-14.6)
[2025-08-10 01:59] LABS: CREATININE 1.0 mg/dL (0.6-1.3); UREA NITROGEN BLOOD 11 mg/dL (9-23)
[2025-08-10 02:00] LABS: TROPONIN I HIGH SENSITIVITY 7 ng/L (3.0-53)
[2025-08-10 02:01] LABS: ASPARTATE AMINOTRANSFERASE 17 IU/L (<34); BILIRUBIN DIRECT 0.1 mg/dL (<=3.0); BILIRUBIN TOTAL 0.5 mg/dL (0.1-1.0); PROTEIN TOTAL 7.4 g/dL (6.0-8.3)
[2025-08-10 02:02] LABS: INR 1.2
[2025-08-10] MEDS: ASPIRIN 325MG TABLET PO NR (03:02)
[2025-08-10] MEDS ORDERED: ONDANSETRON HCL 4MG/2ML INJ IV PRN (04:30)
[2025-08-10] MEDS ORDERED: DEXTROSE 50% WATER 50ML SYRINGE IV PRN (04:30)
[2025-08-10] MEDS ORDERED: ACETAMINOPHEN 325MG TABLET PO PRN ×2 (04:30)
[2025-08-10] MEDS ORDERED: CLONIDINE 0.1MG TABLET PO PRN (04:45)
[2025-08-10 04:52] LABS: EOSINOPHILS % MANUAL 17.0 % (0.0-5.0); LYMPHOCYTES % MANUAL 30.0 % (20.0-50.0); MONOCYTES % MANUAL 10.0 % (2.0-8.0); NEUTROPHILS % MANUAL 43.0 % (45.0-75.0)
[2025-08-10 04:53] VITALS: BP 169/83; PULSE 72; RESP 20; TEMP 36.7; O2SAT 99
[2025-08-10 05:05] LABS: PLATELET ESTIMATE NORMAL
[2025-08-10] MEDS ORDERED: BLOOD SUGAR DIAGNOSTIC STRIP TEST SCH (09:00)
[2025-08-10] MEDS ORDERED: CLOPIDOGREL 75MG TABLET PO SCH (09:00)
[2025-08-10] MEDS ORDERED: ASPIRIN 81MG EC TABLET PO SCH (09:00)
[2025-08-10] MEDS ORDERED: ENOXAPARIN 40MG/0.4ML SYR SUBCUT SCH (09:00)
[2025-08-10] MEDS ORDERED: IOHEXOL-350 100 ML BOTTLE ONE (09:09)
== END 2025-08-10 05:28 | disposition short-term general hospital (02) ==
LOC: ER 00:41 → CMPBEDREQ 07:47
DX: R51.9 Headache, unspecified (principal); R53.1 Weakness; E78.00 Pure hypercholesterolemia, unspecified; I10 Essential (primary) hypertension; I25.2 Old myocardial infarction; I48.91 Unspecified atrial fibrillation; Z79.01 Long term (current) use of anticoagulants; Z79.82 Long term (current) use of aspirin; Z79.899 Other long term (current) drug therapy; Z86.73 Personal history of transient ischemic attack (TIA), and cerebral infarction without residual deficits
CPT/HCPCS: 99291; 70496; 71045; 80076; 80048; 83735; 85025; 85610; 85730; 84484; 36415; 70498; 93005; 70450; Q9967